=== PATIENT | female | born 2000 | race Hispanic/Latino ===

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

== ENCOUNTER 2019-01-04 18:38 | Emergency (ER) | payer OTHER, SELFPAY ==
[2019-01-04] MEDS ORDERED: Ibuprofen 200 MG TAB ONE (19:45)
== END 2019-01-04 19:45 | disposition home or self-care (01) ==
LOC: NAV ERS 18:38
DX: J02.9 Acute pharyngitis, unspecified (principal)
CPT/HCPCS: 87081; 87430; 99283

== ENCOUNTER 2019-11-17 20:01 | Emergency (ER) | payer SELFPAY ==
[2019-11-17 20:46] LABS: #Basophils 0.1 thou/uL (0.0-0.2); #Eosinphils 0.2 thou/uL (0.0-0.7); #Lymphocytes 1.8 thou/uL (1.20-3.40); #Monocytes 0.4 thou/uL (0.11-0.59); #Neutrophils 6.8 thou/uL (1.40-6.50); %Basophils 0.6 % (0.0-1.0); %Eosinophils 1.8 % (0.0-10.0); %Lymphocytes 19.2 % (28.0-48.0); %Monocytes 4.6 % (0.0-4.0); %Neutrophils 73.8 % (31.0-61.0); Hemoglobin 14.5 g/dL (12.0-16.0); Mean Corpuscular HGB CONC 33.2 g/dL (32.0-36.0); Mean Corpuscular Hemoglobin 29.1 pg (25.0-35.0); Mean Corpuscular Volume 87.6 fL (78.0-98.0); Mean Platelet Volume 7.5 fL (7.4-10.4); Platelet Count 301 thou/uL (130-400); RBC Distribution Width 11.7 % (11.5-14.5); Red Blood Cell (RBC) Count 4.99 mill/uL (4.00-5.20); White Blood Cell (WBC) Count 9.2 thou/uL (4.8-10.8)
[2019-11-17 21:02] LABS: Bilirubin Negative (Negative); Blood, Urine Negative (Negative); Clarity Slightly Cloudy (Clear); Glucose, Urine (Dipstick) Negative (Negative); Leukocyte Negative (Negative); Nitrite Negative (Negative); Protein, Urine (Dipstick) Negative (Neg-Trace); Urobilinogen 0.2 mg/dL (Less than 2)
[2019-11-17 21:09] LABS: Pregnancy Test - Urine (BHCG) Negative (Negative); Pregu Control Background? CLEAR/WHITE (CLR/WHITE); Pregu Control Bar Appear? YES (CONTROL BAR); Specific Gravity 1.028 (1.002-1.036)
[2019-11-17 21:19] LABS: Anion Gap 18 mmol/L (10-20); BUN (Urea Nitrogen) 16 mg/dL (7.0-18.7); Calc. Creatinine Clearance 0 mL/min (70-130); Calcium 9.7 mg/dL (7.8-10.44); Carbon Dioxide 19 mmol/L (22-29); Chloride 104 mmol/L (98-107); Estimated GFR-MDRD Greater than 90; Glucose 135 mg/dL (70-105); Potassium 3.7 mmol/L (3.5-5.1); Sodium 137 mmol/L (136-145)
[2019-11-17 21:32] LABS: ALT (SGPT) 200 U/L (8-55); AST (SGOT) 87 U/L (5-34); Albumin 4.6 g/dL (3.5-5.0); Alkaline Phosphatase 108 U/L (40-100); Bilirubin, Direct 0.1 mg/dL (0.1-0.3); Bilirubin, Total 0.3 mg/dL (0.2-1.2); Protein, Total 8.2 g/dL (6.0-8.3)
== END 2019-11-17 22:19 | disposition home or self-care (01) ==
LOC: NAV ERS 20:01
DX: R10.84 Generalized abdominal pain (principal)
CPT/HCPCS: 36415; 80048; 80076; 81003; 81025; 85025; 99284

== ENCOUNTER 2020-03-25 08:56 | Emergency (ER) | payer SELFPAY ==
[2020-03-25] MEDS ORDERED: Adacel (T-DAP) 0.5 ML SYRINGE ONE (09:21)
--- NOTE | 2020-03-25 10:11 | RAD ---
RIGHT FOOT 3 VIEWS: Date: 03/25/2020 COMPARISON: None. HISTORY: Puncture wound following stepping on a nail, puncture site is near the fifth metatarsal. FINDINGS: No radiopaque foreign body or subcutaneous gas. No displaced fracture or dislocation seen. IMPRESSION: No acute osseous abnormality. POS: [facility]
== END 2020-03-25 10:27 | disposition home or self-care (01) ==
LOC: NAV ERS 08:56
DX: S91.331A Puncture wound without foreign body, right foot, initial encounter (principal); W45.0XXA Nail entering through skin, initial encounter
CPT/HCPCS: 90471; 90715